=== PATIENT | female | born 1950 | race Caucasian/White ===

== ENCOUNTER 2018-07-13 05:28 | Inpatient (IN) | payer OTHER ==
[2018-06-28 12:38] LABS: URINE BILIRUBIN NEGATIVE (Negative); URINE BLOOD NEGATIVE (Negative); URINE CLARITY CLEAR; URINE COLOR YELLOW; URINE GLUCOSE-RANDOM* NEGATIVE (Negative); URINE KETONES NEGATIVE (Negative); URINE LEUKOCYTES-REFLEX NEGATIVE (Negative); URINE NITRITE-REFLEX NEGATIVE (Negative); URINE PROTEIN (DIPSTICK) NEGATIVE (Negative); URINE SPECIFIC GRAVITY 1.025 (1.005-1.035); URINE UROBILINOGEN 0.2 E.U./dl (0.2-1.0)
[2018-06-28 12:39] LABS: HEMATOCRIT 39.5 % (37.0-47.0); HEMOGLOBIN 13.4 gm/dL (12.0-15.0); MCH 29.2 pg (26.0-34.0); MCHC 33.8 g/dL (28.0-37.0); MCV 86.5 fL (80.0-100.0); RBC 4.57 mil/uL (4.20-5.00); RDW 13.2 % (10.5-14.5)
[2018-06-28 12:54] LABS: ALBUMIN 3.9 g/dL (3.4-5.0); POTASSIUM 4.1 mmol/L (3.5-5.1); TOTAL BILIRUBIN 0.4 mg/dL (<0.1-1.0)
[~2018-07-13] VITALS: Ht 167.6 cm; Wt 81.2 kg
--- NOTE | ~2018-07-13 | O ---
[facility] [place] [address] OPERATIVE REPORT Name: ADRIEN MONIQUE Room #: 150-8 ADM IN M.R.#: [id number] Admission: 07/13/18 ������������������ Attend Phys: Isaias Lanza MD Discharge: ������������������ Date of : 52 Report #: [id number] THIS REPORT FOR: //name// CC: Mattie Lanza DATE OF SERVICE: 07/13/2018 PREOPERATIVE DIAGNOSIS: Left knee osteoarthritis. POSTOPERATIVE DIAGNOSIS: Left knee osteoarthritis. PROCEDURE: Left total knee arthroplasty using [employer] Robotic System. SURGEON: Isaias Lanza MD. SERVICE BAR CASHIER: Regine Ivey PA-C. INDICATIONS FOR SERVICE BAR CASHIER: Throughout the case, extensive retraction and manipulation of the knee was required. This was afforded to me by my operations manager assistant. ANESTHESIA: LMA with an adductor canal block. IMPLANTS: [employer] size 6 Legion cobalt chrome posterior stabilized femur, a size 4 tibia, size 10 polyethylene and size 32 patella. TOURNIQUET TIME: 62 minutes. ESTIMATED BLOOD LOSS: 25 mL. COMPLICATIONS: None. SPECIMENS: None. CONDITION UPON LEAVING THE OPERATING ROOM: Stable. INDICATION FOR PROCEDURE: The patient is a 67-year-old female with left knee osteoarthritis. She has failed conservative measures for this and after discussion with her, she elected for left total knee arthroplasty. DESCRIPTION OF PROCEDURE: Risks, benefits, alternatives, complications were discussed in detail with the patient including but not limited to risk of anesthesia, risk of damage to nerves, arteries, blood vessels, risk for infection, bleeding, risk for continued knee pain, need for reoperation. Informed consent was obtained from the patient. Left knee was appropriately marked in the preoperative holding area. IV clindamycin was given for [address] [address] OPERATIVE REPORT Name: ADRIEN MONIQUE Room #: 150-8 ADM IN M.R.#: [id number] Admission: 07/13/18 ������������������ Attend Phys: Isaias Lanza MD Discharge: ������������������ Date of : 52 Report #: [id number] preoperative antibiotics. She was brought to the operating room and placed in supine position on operating room table. LMA anesthesia was induced without complication. Tourniquet was placed on the left thigh. Left lower extremity was prepped and draped in normal sterile fashion. Timeout was performed properly identifying the patient and procedure as well as the instrumentation and implants. All in the operating room were in agreement. Left lower extremity was exsanguinated, tourniquet was inflated. Tourniquet time was 62 minutes. Standard midline approach to the knee was made with 10 blade through the skin. Dissection was taken down sharply to the fascia and deep flaps were developed medially and laterally. Fresh 10 blade was used to make a medial parapatellar arthrotomy and the knee was inspected. There was severe medial compartment with moderate patellofemoral compartment osteoarthritis. It was decided to proceed with total knee arthroplasty. ACL and PCL were removed sharply. Reference pins were placed in the femur and the tibia for the Navio System and the knee was then digitally mapped using the Navio Robotic System. Intraoperative plan was made and was sized to a size 6 femur and a size 4 tibia. After acceptance of the intraoperative plan, the distal femoral cut was made with the Navio shelbie. The 4-in-1 cutting block was placed and the anterior, posterior and chamfer cuts were made. Knee was then hyperflexed and remainder of the menisci removed with Bovie cautery. Tibial resection guide was placed using the Navio Robotic Navigation System and the tibial resection was made. After this, flexion and extension gaps were checked and found to have good balance in flexion and extension both medially and laterally. Tibia was sized, found to be a size 4. Size 4 tibial trial was placed, pinned and punched and a size 6 femoral trial was placed and the box cut was made. This was then trialed with a size 9 and then a size 10 polyethylene and size 10 polyethylene had good balance in flexion, extension both medially and laterally with mm of laxity throughout range of motion, both manually as well as digitally. A 9 mm was taken off the posterior surface of the patella and a size 32 patellar trial button was placed. Knee was taken through range of motion, found to be stable, found to have good patellar tracking. After this, trial components were removed. Bony ends were thoroughly irrigated with normal saline. Final size 4 tibia, size 6 Legion cobalt chrome narrow posterior stabilized femur, a size 32 patella were cemented in place using standard cementation techniques. While the cement cured, a periarticular injection consisting of morphine, ropivacaine, epinephrine and Toradol was placed around the knee joint capsule. After the cement cured, tourniquet was deflated. Hemostasis was obtained with Bovie cautery. A final size 10 polyethylene was placed. A gram of vancomycin was placed deep in the joint. Fascia was closed with 0 Vicryl, skin was closed with 2-0 Vicryl, 3-0 Monocryl. Dermabond and a LANA dressing were applied. The patient tolerated this procedure well and went to recovery room under care of anesthesia postoperatively. ��������������������������������������������� ���������������������������������������� By: ��������������������������������������������� [id number] Isaias Lanza MD /nt
[~2018-07-13 05:28] MED LIST: ADDERALL 20 MG20 M1 PO; ARIMIDEX1 MG PO; BUSPIRONE HCL10 MG PO; CARISOPRODOL 3350 MG PO; CELEBREX 200 M200 M1 PO; CLONAZEPAM 1 MG1 M1 PO; HYDROXYZINE HCL10 M1 PO; MAGNESIUM500 MG PO; PAXIL 20 MG TAB20 MG PO; POTASSIUM99 M1 PO; PROTONIX40 M1 PO; SINGULAIR 10 MG10 M1 PO; SYMBICORT160 MCG/4. INH; TRAZODONE HCL100 MG PO; VITAMIN D32000 UNI1 PO; VITAMIN K PO; ZINC30 M1 PO
[2018-07-13 09:46] VITALS: BP 177/88
[2018-07-13 17:02] VITALS: BP 157/87
[2018-07-13 18:25] VITALS: BP 166/93
[2018-07-13 20:00] VITALS: BP 150/69; BP 153/82
--- NOTE | 2018-07-13 20:38 | NUR ---
Pt arrived to floor per cart from recovery room around 1730 in stable condition.Post op assessment completed.one of pt home med soma counted and sent to pharmacy but sister later came to unit and took it home.Report off to clau pemberton.
[2018-07-14 01:30] VITALS: BP 139/83
--- NOTE | 2018-07-14 04:28 | NUR ---
Pt is post-op left total knee. A&o x4. Pain is well controlled. Able to ambulate and void in the toilet. Dressing clean and intact. Lee hose and scd in place bilaterally. Call light within reach. Will continue to monitor.
[2018-07-14 05:00] VITALS: BP 144/74
[2018-07-14 06:03] LABS: HEMATOCRIT 33.1 % (37.0-47.0); HEMOGLOBIN 10.9 gm/dL (12.0-15.0); MCH 29.2 pg (26.0-34.0); MCV 88.5 fL (80.0-100.0); RBC 3.74 mil/uL (4.20-5.00); RDW 13.4 % (10.5-14.5); WBC 9.4 thou/uL (4.0-11.0)
[2018-07-14 07:20] VITALS: BP 155/69
--- NOTE | 2018-07-14 09:21 | NUR ---
ASSESMENT COMPLETED. VSS. A/O. DENIES PAIN THIS AM. NO NOTED SOA. NO NV. PT RESTING IN BED APPEARS COMFORTABLE. WILL CONT. TO MONITOR.
--- NOTE | 2018-07-14 14:16 | NUR ---
INITIAL ASSESSMENT: Pt evaluated for d/c planning needs. Reviewed chart and spoke with nurse and pt. Pt is alert and oriented. Pt lives alone in condo with bedroom on second floor. Pt has cane and bath bench at home. Pt will need walker for home use. Contacted [facility] liaison and she will issue walker prior to d/c. Pt plans on staying with her sister on d/c from hospital. Pt said she has had home health in the past, but does not recall name of company. Pt plans on returning home with home health on d/c from hospital. Will remain available to assist as needed.
[2018-07-14 16:50] VITALS: BP 92/46
[2018-07-14 19:11] VITALS: BP 113/63
--- NOTE | 2018-07-14 21:25 | NUR ---
Assumed care of pt at 1900. Pt alert and oriented x4. Incision intact. Hs meds administered. Call light within reach. Report given to clau pemberton.
--- NOTE | 2018-07-15 03:23 | NUR ---
PT SLEPT MOST OF THE NIGHT PT DID NOT COMPLAIN OF ANY PAIN DURING THE NIGHT PT USED ACLL LIGHT EFFECTIVELY NO ISSUES OVERNIGHT.
[2018-07-15 04:15] VITALS: BP 92/49
[2018-07-15 05:29] LABS: HEMATOCRIT 32.5 % (37.0-47.0); HEMOGLOBIN 10.9 gm/dL (12.0-15.0); MCH 29.9 pg (26.0-34.0); MCHC 33.5 g/dL (28.0-37.0); MCV 89.2 fL (80.0-100.0); RBC 3.64 mil/uL (4.20-5.00); RDW 13.7 % (10.5-14.5); WBC 6.8 thou/uL (4.0-11.0)
[2018-07-15 07:15] VITALS: BP 144/74
--- NOTE | 2018-07-15 07:27 | NUR ---
PT A0X3 PT LETHARGIC BUT ABLE TO BE AROUSED PT 1-2 ASSIST TO BEDSIDE COMMODE PT WEAK ON FEET PT COMPLAINING OF FALLING IN THE MIDDLE OF THE NIGHT GOING TO THE BATHROOM BUT STAFF DID NOT SEE PT GET UP OR HEAR PT GET UP OR FALL BED ALARM STILL ON.
--- NOTE | 2018-07-15 10:20 | NUR ---
ASSUMED PT CARE AT 0800. PT STATES SHE FELL IN THE BATHROOM DURING THE NIGHT AND SAID SHE LANDED ON HER BUTTOM THEN ROLLED OVER AND PUT SOME WEIGHT ON L KNEE. BRUISING TO L KNEE NOTED. THIS FALL WAS NOT WITNESSED THOUGH PT DID NOTIFY STAFF WHEN THIS HAPPENED. DR. BUCHANAN OFFICE NOTIFIED, AWAITING FOR TORO BENNETT TO RETURN CALL. WILL COMPLETE THE VERG REPORT.
[2018-07-15 16:00] VITALS: BP 134/86
[2018-07-15 19:06] VITALS: BP 124/65
--- NOTE | 2018-07-16 00:16 | NUR ---
A/O, impulsive. c/o pain in the left leg, pain medication given and worked; no n/v. Vss, afebrile; lab reviewed. Patient is lying in bed, with eyes closed. Will keep monitoring.
[2018-07-16 03:16] VITALS: BP 110/54
[2018-07-16 05:50] LABS: HEMATOCRIT 34.1 % (37.0-47.0); HEMOGLOBIN 11.5 gm/dL (12.0-15.0); MCH 29.6 pg (26.0-34.0); MCHC 33.6 g/dL (28.0-37.0); MCV 88.4 fL (80.0-100.0); RBC 3.86 mil/uL (4.20-5.00); RDW 13.6 % (10.5-14.5)
[2018-07-16] MEDS ORDERED: TRI-BUFFERED A325 M1 PO (08:33)
[2018-07-16] MEDS ORDERED: COZAAR 50 MG TA50 M1 PO (08:33)
[2018-07-16] MEDS ORDERED: NEURONTIN 300300 M1 PO (08:33)
[2018-07-16 10:42] VITALS: BP 110/54
[2018-07-16 10:54] VITALS: BP 110/54
--- NOTE | 2018-07-16 12:46 | NUR ---
PT PLANS TO GO STAY WITH HER FRIEND MARNIE VINCENT [address] [facility], [place], [address], PHONE [phone]. OFFERED HH OPTIONS AND PT WAS OK WITH USING [facility]. NOTIFIED [facility] LIASION AND THEY ARE ABLE TO ACCEPT THE CASE.
--- NOTE | 2018-07-16 19:53 | NUR ---
ASSUMED CARE OF PT AT 0700. ASSESSMENT COMPLETED. A&O,4 SOME CONFUSION AND FORGETFULLNESS NOTED AT TIME. PT IS ANXIOUS AND HAS ANTIANXIETY MEDS, GIVEN ORDERED. C/O 08/25 LEFT KNEE PAIN POST OP, LANA DRESSING IN PLACE. SOME DRIED BLOOD AND BRUISING NOTED. ARRON LEAHY WITH PT. SOME EPISODES OF URINARY URGENCY NOTED THROUGHOUT THE DAY. NEW DISCHARGE ORDERS, HOME WITH HH. SISTER AT BEDSIDE. D/C INFORMATION GIVEN. NEW SCRIPTS AND CARENOTES GIVEN. HOME MEDS SENT WITH SISTER. IV REMOVED. PT LEFT IN STABLE CONDITION VIA WHEELCHAIR AT 1730. ALL BELONGINGS REMOVED FROM ROOM.
== END 2018-07-16 18:00 | disposition home health service (06) | DRG 470 ==
LOC: PRE → TBA 05:36 → 4E 05:36 → PRE 08:02 → 4E 17:08 → ENTRNSPT 07-16 17:40 → 4E 07-16 18:00
PROVIDERS: ADMIT Orthopaedic Surgery
PROC: 0SRD0J9 Replacement of Left Knee Joint with Synthetic Substitute, Cemented, Open Approach (ICD-10-PCS; principal; 2018-07-13)
PROC: 8E0Y0CZ Robotic Assisted Procedure of Lower Extremity, Open Approach (ICD-10-PCS; principal; 2018-07-13)
DX: M17.12 Unilateral primary osteoarthritis, left knee (principal); Z88.6 Allergy status to analgesic agent; Z88.0 Allergy status to penicillin
CPT/HCPCS: 10783; 50010; 50101; 50415; 50954; 51130; 51225; 53000; 53078; 53364; 54118; 56527; 56528; 57095; 57103; 57109; 57110; 57113; 57127; 57180; 62110; 62900; 64043; 65060; 70005